=== PATIENT | female | born 1960 | race African-American/Black ===

== ENCOUNTER 2020-03-23 17:38 | Emergency (ER) | payer BC ==
[~2020-03-23] VITALS: Ht 162.6 cm; Wt 70.3 kg
[2020-03-23 18:00] VITALS: BP 173/88
--- NOTE | 2020-03-23 18:38 | NUR ---
Celena munoz alert xray done patient non distress continue to monitor
--- NOTE | 2020-03-23 19:25 | NUR ---
Patient discharged to home in stable condition. Written and verbal after care instructions given. Patient verbalizes understanding of instruction.
== END 2020-03-23 19:26 | disposition home or self-care (01) ==
LOC: ER 17:45
DX: S92.525A Nondisplaced fracture of middle phalanx of left lesser toe(s), initial encounter for closed fracture (principal); W22.8XXA Striking against or struck by other objects, initial encounter; Y93.89 Activity, other specified; Y92.89 Other specified places as the place of occurrence of the external cause; Y99.8 Other external cause status
CPT/HCPCS: 73630-TC